=== PATIENT | male | born 1940 | race Caucasian/White ===

== ENCOUNTER 2021-02-24 09:03 | Emergency (ER) | payer OTHER ==
[2021-02-24 09:56] LABS: BASOPHIL 0.5 % (0-2); EOSINOPHIL 3.1 % (0-7); HCT 40.6 % (42.0-52.0); HGB 13.5 g/dl (13.2-18.0); LYMPHOCYTE 17.5 % (15-48); MCH 31.6 pg (25.0-31.0); MCHC 33.3 g/dL (32.0-36.0); MCV 95.1 fL (78.0-100.0); MONOCYTE 7.8 % (0-12); MPV 9.7 fL (6.0-9.5); NEUTROPHIL 70.8 % (41-80); NRBC 0; PLT 261 K/uL (150-400); RBC 4.27 M/uL (4.70-6.00); RDW 12.9 % (11.5-14.0); WBC 8.7 K/uL (4.0-10.5)
[2021-02-24 10:17] LABS: IRON % SATURATION 26.5 %SAT (20-50)
[2021-02-24 10:21] LABS: ALBUMIN 3.3 g/dL (3.4-5.0); BILIRUBIN - TOTAL 0.7 mg/dL (0.2-1.0); BUN/CREAT RATIO (CALC) 9.5 RATIO; C-REACTIVE PROTEIN 3.6 mg/dL (<=0.90); CREATININE 0.95 mg/dL (0.67-1.17); GLOBULIN (CALCULATION) 4.1 g/dL; TOTAL PROTEIN 7.4 g/dL (6.4-8.2)
[2021-02-24 10:22] LABS: LACTIC ACID 1.5 mmol/L (0.4-1.9)
[2021-02-24 10:23] LABS: PRO-BNP 373 pg/mL (<450)
[2021-02-24 12:34] LABS: BILIRUBIN NEGATIVE (NEGATIVE); BLOOD NEGATIVE Ery/uL (NEGATIVE); CLARITY CLEAR (CLEAR); COLOR YELLOW (YELLOW); GLUCOSE (U) NORMAL (NORMAL); LEUKOCYTES NEGATIVE Leu/uL (NEGATIVE); NITRITE NEGATIVE (NEGATIVE); PROTEIN NEGATIVE (NEGATIVE)
[2021-02-24] MEDS ORDERED: NORCO 5-325 TA1 EACH PO (13:00)
[2021-02-24] MEDS ORDERED: ONDANSETRON ODT4 MG PO (13:00)
[2021-02-24] MEDS ORDERED: VIBRAMYCIN100 MG PO (13:00)
== END 2021-02-24 14:37 | disposition home or self-care (01) ==
LOC: FER 09:03
PROVIDERS: Emergency Medicine
DX: J84.9 Interstitial pulmonary disease, unspecified (principal); R91.1 Solitary pulmonary nodule; F17.290 Nicotine dependence, other tobacco product, uncomplicated; Z20.822 Contact with and (suspected) exposure to COVID-19
CPT/HCPCS: 36415; 71260; 80053; 81003; 83540; 83550; 83605; 83615; 83690; 83735; 83880; 84145; 84443; 84484; 85025; 86140; 87040; 93005; J0696; J1170; J2405; Q9967; U0002

== ENCOUNTER 2021-12-08 02:04 | Emergency (ER) | payer OTHER ==
[~2021-12-08 02:04] MED LIST: B-1100 MG PO; FINASTERIDE5 MG PO; FOLIC ACID1 MG PO; HCTZ25 MG PO; MELATONIN5 M2 PO; MUCINEX600 MG PO; NEURONTIN100 MG PO; NORCO 5-325 TA1 EACH PO; ONDANSETRON ODT4 MG PO; PRILOSEC20 MG PO; TERAZOSIN 2 MG C2 MG PO; VIBRAMYCIN100 MG PO
[2021-12-08 03:04] LABS: BASOPHIL 0.4 % (0-2); EOSINOPHIL 1.9 % (0-7); HCT 34.4 % (42.0-52.0); HGB 11.5 g/dl (13.2-18.0); LYMPHOCYTE 14.2 % (15-48); MCH 31.4 pg (25.0-31.0); MCHC 33.4 g/dL (32.0-36.0); MONOCYTE 8.1 % (0-12); MPV 9.3 fL (6.0-9.5); NEUTROPHIL 73.8 % (41-80); NRBC 0; PLT 231 K/uL (150-400); RBC 3.66 M/uL (4.70-6.00); RDW 12.2 % (11.5-14.0); WBC 8.5 K/uL (4.0-10.5)
[2021-12-08 03:21] LABS: ALBUMIN 3.2 g/dL (3.4-5.0); BILIRUBIN - TOTAL 0.5 mg/dL (0.2-1.0); BUN/CREAT RATIO (CALC) 10.6 RATIO; CREATININE 1.04 mg/dL (0.67-1.17); GLOBULIN (CALCULATION) 3.4 g/dL; POTASSIUM 3.3 mmol/L (3.5-5.1); TOTAL PROTEIN 6.6 g/dL (6.4-8.2)
[2021-12-08] MEDS ORDERED: PREDNISONE 20MG20 MG PO (04:23)
[2021-12-08 06:01] LABS: CORONAVIRUS 2019 SARS-COV-2 NEGATIVE (NEGATIVE); INFLUENZA A NAA NEGATIVE (NEGATIVE)
== END 2021-12-08 11:33 | disposition other institution (70) ==
LOC: FER 02:04 → FICU 05:34
PROVIDERS: Internal Medicine
DX: J96.01 Acute respiratory failure with hypoxia (principal); J44.1 Chronic obstructive pulmonary disease with (acute) exacerbation; F17.210 Nicotine dependence, cigarettes, uncomplicated; R00.1 Bradycardia, unspecified; Z20.822 Contact with and (suspected) exposure to COVID-19; Z28.311 Partially vaccinated for COVID-19; Z72.89 Other problems related to lifestyle
CPT/HCPCS: 36415; 36600; 71045; 71275; 80053; 82803; 83690; 84484; 85025; 93005; 94640; 94664; G0480; J0456; J0696; J2930; J3475; J7030; J7050; Q9967; U0002

== ENCOUNTER 2022-01-13 11:37 | Emergency (ER) | payer OTHER ==
[~2022-01-13 11:37] MED LIST changes: +PREDNISONE 20MG20 MG PO
== END 2022-01-13 15:05 | disposition home or self-care (01) ==
LOC: FER 11:37
DX: R04.0 Epistaxis (principal); J44.9 Chronic obstructive pulmonary disease, unspecified
CPT/HCPCS: C9046